=== PATIENT | female | born 1990 | race Caucasian/White ===

== ENCOUNTER → 2021-10-21 | Outpatient (CLI) | payer OTHER, SELFPAY ==
[2021-10-21 17:46] LABS: Protein, Urine (Random) 15.4 mg/dL (<11.9); Protein:Creat Ratio 125 mg/g CRE (0-200)
== END | disposition home or self-care (01) ==
LOC: LABSPEC 16:43
PROVIDERS: Visit Provider Student in an Organized Health Care Education/Training Program
DX: Z34.81 Encounter for supervision of other normal pregnancy, first trimester (principal)
CPT/HCPCS: 82570; 84156; 87086; 87088

== ENCOUNTER 2022-01-27 09:13 | Outpatient (CLI) | payer OTHER, SELFPAY ==
[2022-01-27 10:17] LABS: Glucose GTT-Gestation. Fasting 90 mg/dL (<105)
[2022-01-27 11:05] LABS: Glucose GTT-Gestational 1 Hr 188 mg/dL (<190)
[2022-01-27 12:37] LABS: Glucose GTT-Gestational 2 Hr 194 mg/dL (<165)
[2022-01-27 14:13] LABS: Glucose GTT-Gestational 3 Hr 79 L (<145)
== END 2022-01-27 23:59 | disposition home or self-care (01) ==
LOC: WOBLAB 09:14
PROVIDERS: Visit Provider Obstetrics & Gynecology
DX: O24.912 Unspecified diabetes mellitus in pregnancy, second trimester (principal); Z3A.00 Weeks of gestation of pregnancy not specified
CPT/HCPCS: 36415; 82951; 82952

== ENCOUNTER 2022-04-17 19:30 | Inpatient (IN) | payer OTHER, SELFPAY ==
[2022-04-17] VITALS (56 sets, daily range): BP systolic 134–192; BP diastolic 72–101; PULSE 92–123; RESP 14–16; TEMP 36.6–36.9; O2SAT 96–100; BMI 45.4
[2022-04-17 19:41] LABS: ROM Internal Control Test YES-OK TO RESULT pt. (Internal QC); ROM Patient Test Negative (Negative)
[2022-04-17] MEDS: Lactated Ringers 1,000 ML 50 ML IV (19:45)
[2022-04-17] MEDS: Magnesium Sulfate 4gm/100mL 4 GM/100 ML IV.SOLN. IV (19:55)
[2022-04-17 20:00] LABS: Bedside Glucose 85 mg/dL (74-106)
[2022-04-17 20:19] LABS: ALB/GLOB Ratio 0.6 RATIO (0.9-2.4); AST(SGOT) 19 U/L (15-37); Alanine Aminotransfer ALT/SGPT 39 U/L (13-56); Albumin, Serum 2.4 g/dL (3.2-5.0); Alkaline Phosphatase 115 U/L (45-117); Anion Gap 7 (5-15); BUN 10 mg/dL (7-18); BUN/Creat Ratio 18.8 RATIO (10-20); Calcium,Total 9.5 mg/dL (8.5-10.1); Chloride 107 mmol/L (98-107); Creatinine, Serum 0.53 mg/dL (0.55-1.02); EST Glomerular Filtration Rate 142 mL/min (>60); Est Glom Filt Rate - Afr Amer 172 mL/min (>60); Estimated Creatinine Clearance 138.39 ml/min; Glucose 90 mg/dL (74-106); Potassium 3.8 mmol/L (3.5-5.1); Protein, Total 6.4 g/dL (6.4-8.2); Sodium Level 136 mmol/L (136-145)
--- NOTE | 2022-04-17 20:32 | PCM.HP.BLA ---
History and Physical Date of Admission: 04/17/22 HPI: 32-year-old G2, P1 at 36/6 weeks, REED 05/09/2022 by LMP, admitted for superimposed preeclampsia with severe features. Patient reports that she was feeling unwell today, family members had her come into the hospital. Did not take evening dose of labetalol. Denies headache, vision changes, chest pain or shortness of breath, nausea or vomiting, right upper quadrant pain. Reports movement. Denies contractions. Reports some leaking of fluid. complicated by: Class III obesity, chronic hypertension on medication, GDM A2, history of preeclampsia, polyhydramnios [employer] history G1: 37-week 2010, preeclampsia G2: Current Medical history: 1. Chronic hypertension 2. Obesity, class III Allergies: 1. Aspirin 2. Macrobid Medications: 1. Labetalol 100 mg twice daily 2. vitamin 3. Levemir 15 units qHS Social history: Denies tobacco, alcohol, drug use Family history: Noncontributory Review of systems: Negative otherwise stated above Physical exam: Vitals: BP 140/90, pulse 113, pulse ox 100% on room air, temp 97.9 ?F General: No acute distress HEENT: Normocephalic/atraumatic, PERRLA Cardiac: Regular rate and rhythm no murmurs rubs or gallops Respiratory: Clear to auscultation bilaterally Abdomen: Soft, nontender, gravid, no right upper quadrant pain Extremities: Minimal edema Neurologic: Cranial nerves II through XII grossly intact, patellar reflexes 2/4 bilaterally Musculoskeletal: Full strength 5 out of 5 throughout all extremities Cervical exam: 1-2 per RN heart rate:155/mod marizol/+accel/no decel [place]: q3-4 panel: A positive Rubella immune RPR nonreactive HCV negative H IV negative Hepatitis B neg Gonorrhea/chlamydia negative GBS negative on 04/08 Labs today: CBC pending, creatinine 0.35, AST/ALT 19/39 Negative ROM Assessment/plan:32-year-old G2, P1 at 36/6 weeks, REED 05/09/2022 by LMP, admitted for superimposed preeclampsia with severe features. complicated by: Class III obesity, chronic hypertension on medication, GDM A2, history of preeclampsia, polyhydramnios. ?Upon admission to triage patient had blood pressures elevated in the severe range with 180-190 systolic 15 minutes apart. Severe range blood pressure resolved prior to being given 20 mg IV labetalol. With blood pressure was taken simultaneously at time of starting magnesium sulfate, which as a vasodilator could contribute to decrease in blood pressure. Due to severity of blood pressure in the setting of chronic hypertension on labetalol at 36/6 weeks, decision to admit patient for induction of labor was made. Based on ACOG guidelines gestational age for induction of labor for patients with chronic hypertension on medication that is well controlled starts at 37/0 weeks, difficult to control at 36/0. This along with severe range blood pressures, supports admission for induction of labor at this time. Discussed diagnosis and plan of care with patient who was amenable to plan. ?Continue magnesium sulfate 6 g bolus followed by 2 g/h. We will get magnesium levels every 6 hours. ? GBS negative on 04/08. ?Induction of labor with Cytotec. ? GDM A2. Patient on Levemir 15 nightly at home. Diabetic protocol while in labor.
[2022-04-17] MEDS: Magnesium Sulfate 20 GM/500 ML BAG IV (20:45)
[2022-04-17] MEDS: Labetalol 200 MG Tablet PO (20:53)
[2022-04-17 21:15] LABS: Absolute Lymphocyte Count 2.57 X10^3/uL (0.83-4.51); Absolute Neutrophil Count 8.3 X10^3/uL (2.0-7.7); Basophil# 0.01 X10^3/uL; Basophil% 0.1 % (0-1); Eosinophil# 0.03 X10^3/uL; Eosinophils% 0.3 % (0-5); Hematocrit 37.9 % (37-47); Hemoglobin 12.4 g/dL (12.0-15.0); Lymphocyte # 2.57 X10^3/ul (0.83-4.51); Lymphocyte % 21.9 % (19-41); Mean Corp Hgb Conc 32.7 g/dL (32-36); Mean Corpuscular Hgb 28.2 pg (27.0-32.0); Mean Corpuscular Volume 86.1 fL (81-99); Mean Platelet Vol. 9.3 fl (6.2-12.0); Monocyte# 0.76 X10^3/uL; Monocyte% 6.5 % (0-10); NRBC Flagged by Analyzer 0 % (0-5); Neutrophil % 70.7 % (47-70); Platelet Count 310 K/mm3 (150-450); RBC Distribution Width CV 13.2 % (11.6-14.6); RBC Distribution Width SD 41.4 fl (35.1-43.9); White Blood Count 11.7 K/mm3 (4.4-11.0)
[2022-04-17] MEDS: miSOPROStol 25 MCG TABLET VAGINAL (21:25)
[2022-04-17 23:56] LABS: Bedside Glucose 81 mg/dL (74-106)
[2022-04-18] VITALS (107 sets, daily range): BP systolic 102–175; BP diastolic 52–87; PULSE 75–110; RESP 14–16; TEMP 36.1–37.2; O2SAT 87–100
[2022-04-18] MEDS: Mag Hydrox/Al Hydrox/Simeth 30 ML UDC PO ×2 (01:01→20:12)
[2022-04-18] MEDS: miSOPROStol 25 MCG TABLET VAGINAL ×3 (01:11→08:56)
[2022-04-18 01:20] LABS: Bedside Glucose 100 mg/dL (74-106)
[2022-04-18] MEDS: Acetaminophen 500 MG Tablet PO ×3 (02:26→20:12)
[2022-04-18 05:31] LABS: Bedside Glucose 103 mg/dL (74-106)
[2022-04-18] MEDS: Magnesium Sulfate 20 GM/500 ML BAG IV ×3 (06:01→23:20)
--- NOTE | 2022-04-18 08:09 | PCM.PN.OB ---
Subjective Subjective Doing well with Cytotec. Pain controlled. No headache or vision changes. Objective Data Objective Data Vital Signs: Vital Signs Temp Pulse Resp BP Pulse Ox 98.2 F 102 H 16 153/77 H 97 04/18/22 08:01 04/18/22 08:02 04/18/22 07:59 04/18/22 07:59 04/18/22 08:02 Oxygen Delivery Method Room Air Weight: 123.9 kg Body Mass Index (BMI) 45.4 Intake & Output: Intake and Output for Last 24 Hours 04/16/22 04/17/22 04/18/22 23:59 23:59 23:59 Intake Total 466.67 / 466.67 1415.41 / 1415.41 Output Total 300 / 300 1775 / 1775 Balance 166.67 / 166.67 -359.59 / -359.59 Lab / Micro Data Result Diagrams: 04/17/22 21:05 04/17/22 19:40 Labs: Laboratory Results - last 24 hr 04/17/22 18:55: Vag Amniotic Fld Detect Negative 04/17/22 19:40: WBC Cancelled, Corrected WBC Cancelled, RBC Cancelled, Hgb Cancelled, Hct Cancelled, MCV Cancelled, MCH Cancelled, MCHC Cancelled, RDW Std Deviation Cancelled, RDW Coeff of Hua Cancelled, Plt Count Cancelled, MPV Cancelled, Immature Gran % (Auto) Cancelled, Neut % (Auto) Cancelled, Lymph % (Auto) Cancelled, [place] % (Auto) Cancelled, Eos % (Auto) Cancelled, Baso % (Auto) Cancelled, Absolute Neuts (auto) Cancelled, Absolute Lymphs (auto) Cancelled, Total Counted Cancelled, Neutrophils % (Manual) Cancelled, Band Neutrophils % Cancelled, Lymphocytes % (Manual) Cancelled, Monocytes % (Manual) Cancelled, Eosinophils % (Manual) Cancelled, Basophils % (Manual) Cancelled, Metamyelocytes % Cancelled, Myelocytes % Cancelled, Promyelocytes % Cancelled, Blast Cells % Cancelled, Plasma Cell % (Manual) Cancelled, Other Cells % Cancelled, Nucleated RBC % Cancelled, Nucleated RBCs/100 WBC Cancelled, Differential Comment Cancelled, Diff Path Review Cancelled, Hypersegmented Neuts Cancelled, Atypical Lymphocytes Cancelled, Reactive Lymphocytes Cancelled, Smudge Cells Cancelled, Toxic Granulation Cancelled, Toxic Vacuolation Cancelled, Dohle Bodies Cancelled, Michael Rods Cancelled, Platelet Estimate Cancelled, Plt Morphology Comment Cancelled, RBC Morphology Cancelled, Polychromasia Cancelled, Hypochromasia Cancelled, Poikilocytosis Cancelled, Basophilic Stippling Cancelled, Anisocytosis Cancelled, Microcytosis Cancelled, Macrocytosis Cancelled, Spherocytes Cancelled, Sickle Cells Cancelled, Target Cells Cancelled, Tear Drop Cells Cancelled, Ovalocytes Cancelled, Stomatocytes Cancelled, [place] Bodies Cancelled, [place] Cells Cancelled, Bite Cells Cancelled, Crenated Cell Cancelled, Acanthocytes (Spur) Cancelled, Rouleaux Cancelled, Schistocytes Cancelled 04/17/22 19:40: Blood Type A POSITIVE, Antibody Screen NEGATIVE 04/17/22 19:40: Sodium 136, Potassium 3.8, Chloride 107, Carbon Dioxide 22.0, Anion Gap 7, BUN 10, Creatinine 0.53 L, Estim Creat Clear Calc 138.39, Est GFR (MDRD) Af Amer 172, Est GFR (MDRD) Non-Af 142, BUN/Creatinine Ratio 18.8, Glucose 90, Calcium 9.5, Total Bilirubin 0.20, AST 19, ALT 39, Alkaline Phosphatase 115, Total Protein 6.4, Albumin 2.4 L, Globulin 4.0, Albumin/Globulin Ratio 0.6 L 04/17/22 19:54: POC Glucose 85 04/17/22 20:56: POC Glucose 81 04/17/22 21:05: WBC 11.7 H, RBC 4.40, Hgb 12.4, Hct 37.9, MCV 86.1, MCH 28.2, MCHC 32.7, RDW Std Deviation 41.4, RDW Coeff of Hua 13.2, Plt Count 310, MPV 9.3, Immature Gran % (Auto) 0.500, Neut % (Auto) 70.7 H, Lymph % (Auto) 21.9, [place] % (Auto) 6.5, Eos % (Auto) 0.3, Baso % (Auto) 0.1, Absolute Neuts (auto) 8.3 H, Absolute Lymphs (auto) 2.57, Nucleated RBC % 0 04/18/22 01:06: POC Glucose 100 04/18/22 05:16: POC Glucose 103 Micro: Microbiology 04/17/22 19:40 Nasal Secretion SARS-CoV-2 Antigen (Rapid) - Final Physical Exam Const alert, oriented x3 and no apparent distress HEENT normocephalic Head and Scalp: atraumatic Resp normal respiratory effort Cardio regular rate GI soft to palpation and non-tender Inspection: gravid NST FHR Rate Baby A Baseline: 130 Variability:: Moderate Accelerations:: 15 x 15 Decelerations:: None FHR Category:: Category I Assessment & Plan (1) Severe pre-eclampsia: PLAN: 37/0 weeks. Continued induction of labor for superimposed preeclampsia based on severe range blood pressures, uncontrolled chronic hypertension. -Patient has received 2 doses of Cytotec. She is 2 cm dilated per RN at last check. Next dose of Cytotec due at approximately 9 AM. To be given. -Continue magnesium sulfate. ?Continue labetalol 200 mg every 12 hours. -Blood glucose well controlled (2) Gestational diabetes: (3) Polyhydramnios: COMMENT: per dr diggs (4) Chronic hypertension:
[2022-04-18 09:20] LABS: Bedside Glucose 144 mg/dL (74-106)
[2022-04-18] MEDS: Labetalol 200 MG Tablet PO (10:14)
[2022-04-18 11:26] LABS: Bedside Glucose 129 mg/dL (74-106)
[2022-04-18] MEDS: Oxytocin 30 units/NS 500 ml 30 UNITS/500 ML IV.SOLN IV ×2 (13:31→14:02)
[2022-04-18] MEDS: Lactated Ringers 500 ML 999 ML IV (14:03)
[2022-04-18] MEDS: fentaNYL-bupivacaine (epidural) 100 ML BAG EPIDURAL ×2 (14:45→23:21)
[2022-04-18 16:06] LABS: Bedside Glucose 94 mg/dL (74-106)
--- NOTE | 2022-04-18 19:50 | NURSING ---
pt has epidural. difficult to assess patellar reflexes accurately
[2022-04-18 20:31] LABS: Bedside Glucose 86 mg/dL (74-106)
[2022-04-18] MEDS: Ondansetron 4 MG/2 ML Vial IV (22:35)
[2022-04-18] MEDS: 0.9% Saline Lock 10 ML Syringe IV (22:35)
[2022-04-18] MEDS: Lactated Ringers 1,000 ML 25 ML IV (23:20)
[2022-04-19] VITALS (56 sets, daily range): BP systolic 97–156; BP diastolic 50–85; PULSE 77–100; RESP 14–20; TEMP 36.4–37.4; O2SAT 92–100
[2022-04-19 00:36] LABS: Bedside Glucose 97 mg/dL (74-106)
[2022-04-19] MEDS: Lactated Ringers 500 ML 999 ML IV (02:17)
[2022-04-19] MEDS: Amnioinfusion- 0.9% NS 1,000 ML IV.SOLN. INTRA-UTER (02:29)
[2022-04-19 02:41] LABS: Bedside Glucose 99 mg/dL (74-106)
[2022-04-19 03:41] LABS: Bedside Glucose 91 mg/dL (74-106)
[2022-04-19] MEDS: Acetaminophen 500 MG Tablet PO (03:50)
[2022-04-19] MEDS: fentaNYL-bupivacaine (epidural) 100 ML BAG EPIDURAL ×2 (03:51→08:34)
[2022-04-19 05:06] LABS: Bedside Glucose 105 mg/dL (74-106)
[2022-04-19] MEDS: Amnioinfusion- 0.9% NS 1,000 ML IV.SOLN. 1000 ML INTRA-UTER (06:25)
[2022-04-19 06:35] LABS: Bedside Glucose 93 mg/dL (74-106)
--- NOTE | 2022-04-19 08:37 | PCM.PN.OB ---
Subjective Subjective No complaints. Remains asymptomatic denies headache, visual changes, chest pain, shortness of breath, nausea vomit, or upper quadrant pain. Objective Data Objective Data Vital Signs: Vital Signs Temp Pulse Resp BP Pulse Ox 98.1 F 89 16 122/68 H 99 04/19/22 07:40 04/19/22 07:38 04/19/22 06:59 04/19/22 07:38 04/19/22 07:37 Oxygen Delivery Method Room Air Weight: 273 lb 2.444 oz Body Mass Index (BMI) 45.4 Intake & Output: Intake and Output for Last 24 Hours 04/17/22 04/18/22 04/19/22 23:59 23:59 23:59 Intake Total 466.67 / 466.67 4297.86 / 4297.86 993.02 / 993.02 Output Total 300 / 300 3250 / 3250 425 / 425 Balance 166.67 / 166.67 1047.86 / 1047.86 568.02 / 568.02 Lab / Micro Data Result Diagrams: 04/17/22 21:05 04/17/22 19:40 Labs: Laboratory Results - last 24 hr 04/18/22 09:00: POC Glucose 144 H 04/18/22 11:07: POC Glucose 129 H 04/18/22 15:48: POC Glucose 94 04/18/22 20:18: POC Glucose 86 04/19/22 00:26: POC Glucose 97 04/19/22 02:30: POC Glucose 99 04/19/22 03:35: POC Glucose 91 04/19/22 04:50: POC Glucose 105 04/19/22 05:55: POC Glucose 93 Micro: Microbiology 04/17/22 19:40 Nasal Secretion SARS-CoV-2 Antigen (Rapid) - Final Physical Exam Const alert, oriented x3, no apparent distress, average body habitus, healthy appearing and well nourished HEENT normocephalic and moist oral mucous membranes Head and Scalp: atraumatic Face and Sinus: normal facial exam Eyes PERRL Neck full ROM Resp normal respiratory effort, no retractions and no use of accessory muscles Extremity normal to inspection, full ROM and no clubbing, cyanosis or edema Psych mental status grossly normal, affect normal, speech normal and activity/motor behavior normal Assessment & Plan (1) : PLAN: Patient seen and examined. Remains asymptomatic. We will continue to monitor blood pressures. For magnesium level now. We will continue current management
[2022-04-19] MEDS: Magnesium Sulfate 20 GM/500 ML BAG IV ×2 (08:41→15:48)
[2022-04-19 08:55] LABS: Bedside Glucose 99 mg/dL (74-106)
[2022-04-19 08:55] LABS: Bedside Glucose 103 mg/dL (74-106)
[2022-04-19 09:35] LABS: Magnesium 6.2 mg/dL (1.6-2.6)
[2022-04-19] MEDS: Labetalol 200 MG Tablet PO ×2 (10:20→22:19)
[2022-04-19 10:21] LABS: Bedside Glucose 89 mg/dL (74-106)
[2022-04-19] MEDS: Ondansetron 4 MG/2 ML Vial IV (10:27)
[2022-04-19 12:00] LABS: Bedside Glucose 97 mg/dL (74-106)
[2022-04-19] MEDS: miSOPROStol 200 MCG Tablet 1000 MCG RC (13:48)
[2022-04-19] MEDS: Oxytocin 30 units/NS 500 ml 30 UNITS/500 ML IV.SOLN 334 UNITS IV (13:48)
--- NOTE | 2022-04-19 14:03 | EX.PCM.OBRPT ---
Vaginal Delivery Findings Description of Procedure: Called by nursing for delivery. Arrived to baby delivered in warmer, placenta still intact. Placenta delivered via cord traction and fundal massage. No lacerations noted. Expedited second stage, Cytotec and 1000 mcg NV placed. EBL 400 cc Apgars 8/9
[2022-04-19 14:31] LABS: Bedside Glucose 108 mg/dL (74-106)
[2022-04-19 14:31] LABS: Bedside Glucose 92 mg/dL (74-106)
[2022-04-19] MEDS: Acetaminophen 500 MG Tablet 1000 MG PO (14:57)
[2022-04-19] MEDS: Ibuprofen 600 MG Tablet PO ×2 (17:46→23:58)
--- NOTE | 2022-04-19 17:53 | NURSING ---
this nurse spoke to dr.holmes hurst and she stated we will leave the pt on magnesium for 24 hours but we do not need to do mag levels as long as the pt has good reflexes.
[2022-04-20] VITALS (40 sets, daily range): BP systolic 93–189; BP diastolic 50–86; PULSE 67–89; RESP 16–20; TEMP 35.6–37; O2SAT 93–99
[2022-04-20] MEDS: Magnesium Sulfate 20 GM/500 ML BAG IV (01:11)
[2022-04-20 05:26] LABS: Bedside Glucose 109 mg/dL (74-106)
[2022-04-20] MEDS: Ibuprofen 600 MG Tablet PO ×2 (07:23→21:59)
[2022-04-20] MEDS: 0.9% Saline Lock 10 ML Syringe IV (09:21)
--- NOTE | 2022-04-20 09:22 | PCM.PN.OB ---
Subjective Subjective Patient without complaints still on magnesium sulfate for PIH . Denies any PIH symptoms and blood pressures for the most part are normal. Objective Data Objective Data Vital Signs: Vital Signs Temp Pulse Resp BP Pulse Ox 97.2 F L 74 18 115/62 96 04/20/22 08:13 04/20/22 08:14 04/20/22 08:13 04/20/22 08:14 04/20/22 08:13 Oxygen Delivery Method Room Air Weight: 273 lb 2.444 oz Body Mass Index (BMI) 45.4 Intake & Output: Intake and Output for Last 24 Hours 04/18/22 04/19/22 04/20/22 23:59 23:59 23:59 Intake Total 4297.86 / 4297.86 3557.98 / 3557.98 1069.17 / 1069.17 Output Total 3250 / 3250 1725 / 1725 1500 / 1500 Balance 1047.86 / 1047.86 1832.98 / 1832.98 -430.83 / -430.83 Lab / Micro Data Result Diagrams: 04/17/22 21:05 04/17/22 19:40 Labs: Laboratory Results - last 24 hr 04/19/22 09:00: Magnesium 6.2 H* 04/19/22 09:48: POC Glucose 89 04/19/22 11:29: POC Glucose 97 04/19/22 12:43: POC Glucose 92 04/19/22 13:36: POC Glucose 108 H 04/20/22 05:18: POC Glucose 109 H Micro: Microbiology 04/17/22 19:40 Nasal Secretion SARS-CoV-2 Antigen (Rapid) - Final Assessment & Plan (1) Severe pre-eclampsia: PLAN: Doing well day #1 status post routine spontaneous vaginal delivery. Will discontinue magnesium sulfate and continue monitoring. Possible discharge tomorrow. Continuing p.o. labetalol 200 mg twice daily.
[2022-04-20] MEDS: Labetalol 200 MG Tablet PO ×2 (10:20→21:59)
[2022-04-20] MEDS: Senna/Docusate Sodium 1 Tablet PO (10:20)
--- NOTE | 2022-04-20 12:18 | NURSING ---
Report give to Stiven DAN, taking over pt care at this time.
[2022-04-21] VITALS (8 sets, daily range): BP systolic 98–131; BP diastolic 46–65; PULSE 64–75; RESP 18; TEMP 36.8–36.9; O2SAT 95–97
--- NOTE | 2022-04-21 07:04 | PCM.PN.OB ---
Subjective Subjective Patient without complaints. Breast-feeding going well. Denies any PIH symptoms. Blood pressures normal on labetalol 200 mg twice daily. Objective Data Objective Data Vital Signs: Vital Signs Temp Pulse Resp BP Pulse Ox 98.4 F 69 18 114/65 95 04/21/22 04:34 04/21/22 04:37 04/21/22 04:35 04/21/22 04:37 04/21/22 04:35 Oxygen Delivery Method Room Air Weight: 273 lb 2.444 oz Body Mass Index (BMI) 45.4 Intake & Output: Intake and Output for Last 24 Hours 04/19/22 04/20/22 04/21/22 23:59 23:59 23:59 Intake Total 3557.98 / 3557.98 1568.34 / 1568.34 Output Total 1725 / 1725 2200 / 2200 Balance 1832.98 / 1832.98 -631.66 / -631.66 Lab / Micro Data Result Diagrams: 04/17/22 21:05 04/17/22 19:40 Micro: Microbiology 04/17/22 19:40 Nasal Secretion SARS-CoV-2 Antigen (Rapid) - Final Assessment & Plan (1) : PLAN: Doing well day #2 status post routine spontaneous vaginal delivery. Will discharge to home on labetalol 200 mg twice daily as she was on prior to delivery. Routine home-going instructions given otherwise.
--- NOTE | 2022-04-21 07:09 | PCM.DC ---
Discharge Instructions Diet Discharge Diet: No restrictions Activity Discharge Activity: May Drive (In 1 to 2 days if not taking narcotic pain medication), May Shower and May Take a Tub Bath May resume sexual activity in: 4-6 weeks Additional Activity Instructions:: Nothing in the vagina for 4-6 weeks. You may return to work/school in 6 weeks. Dressing / Incision Call your doctor if you observe: Fever of 101 or Higher, Inability to urinate, Inability to have a bowel movement and Using more than 1 pad per hour Follow Up Care Please Follow Up With: Kendell Osborne MD When: Call [phone] to make an appointment with your doctor in 6 weeks. Test Results: Test results from this visit will be discussed in further detail at your follow-up appointment, if applicable. Discharge Plan Admission Admit Date/Time: 04/17/22 19:30 Primary Reason for Your Visit: Vaginal Delivery Attending Provider: Kendell Osborne Primary Care Provider: Care Physician,Hermelinda Primary Discharge Orders/Prescriptions Prescriptions: Continued labetalol 100 mg Tablet 100 mg PO BID RF: 0 pkquxban-gam-[id number]-FA 1 mg Tablet 1 tab PO DAILY RF: 0 Discontinued Levemir Flexpen 100 unit/mL (3 mL) Insulin Pen 15 unit SUBCUT QHS RF: 0 Referrals / Follow Up: Care Physician,No Primary [Primary Care Provider] - Disposition Disposition (needs filled in before D/C Order can be placed): Home, Self Care
--- NOTE | 2022-04-21 07:12 | DS.PCM_ITS ---
Providers Date of Admission: 04/17/22 Primary Care Physician: Hermelinda Primary Care Phys Reason For Visit: VAGINAL DELIVERY Diagnosis Discharge Diagnosis (1) : Status: Acute Code(s): Z34.90 - Encounter for supervision of normal , unspecified, unspecified trimester Medications at Discharge Home Medications labetalol 100 mg PO BID 04/17/22 [id number]-[id number] 1 tab PO DAILY 04/17/22 Hospital Course Summary of Care Provided Hospital Course: Patient was admitted for induction for -induced hype rtension. Cytotec induction was started. She progressed and delivered without complications on magnesium sulfate. Magnesium sulfate was discontinued for approximately 18 hours postdelivery and 1. Blood pressures remain normal on labetalol 200 mg twice daily. She denies any PIH symptoms. She was discharged on this medication and dose. Weight / BMI Weight Weight: 273 lb 2.444 oz Body Mass Index (BMI) 45.4 ABG / Lab / Microbiology Data Result Diagrams: 04/17/22 21:05 04/17/22 19:40 Microbiology: Microbiology 04/17/22 19:40 Nasal Secretion SARS-CoV-2 Antigen (Rapid) - Final D/C Instructions Discharge Diet: No restrictions May resume sexual activity in: 4-6 weeks Additional Activity Instructions: Nothing in the vagina for 4-6 weeks. You may return to work/school in 6 weeks. Call your doctor if you observe: Fever of 101 or Higher, Inability to urinate, Inability to have a bowel movement and Using more than 1 pad per hour Please Follow Up With: Kendell Osborne MD When: Call [phone] to make an appointment with your doctor in 6 weeks. Meaningful Use Info Meaningful Use Diagnoses (Choose all that apply): None applicable Discharge Plan Admission Admit Date/Time: 04/17/22 19:30 Primary Reason for Your Visit: Vaginal Delivery Attending Provider: Kendell Osborne Primary Care Provider: Care Physician,Hermelinda Primary Discharge Orders/Prescriptions Prescriptions: Continued labetalol 100 mg Tablet 100 mg PO BID RF: 0 ryalflkq-pjt-Eq-FA 1 mg Tablet 1 tab PO DAILY RF: 0 Discontinued Levemir Flexpen 100 unit/mL (3 mL) Insulin Pen 15 unit SUBCUT QHS RF: 0 Referrals / Follow Up: Care Physician,No Primary [Primary Care Provider] - Disposition Disposition (needs filled in before D/C Order can be placed): Home, Self Care
== END 2022-04-21 08:35 | disposition home or self-care (01) | DRG 807 ==
LOC: WPOUT 19:47 → WP 19:47
PROVIDERS: Admitting Provider Obstetrics & Gynecology; Referring Provider Student in an Organized Health Care Education/Training Program; Visit Provider Obstetrics & Gynecology
DX: O14.14 Severe pre-eclampsia complicating childbirth (principal); Z37.0 Single live birth; E66.9 Obesity, unspecified; O62.3 Precipitate labor; O99.214 Obesity complicating childbirth; O24.424 Gestational diabetes mellitus in childbirth, insulin controlled; O40.3XX0 Polyhydramnios, third trimester, not applicable or unspecified; Z3A.36 36 weeks gestation of pregnancy
CPT/HCPCS: 59025; 59050; 80053; 82962; 83735; 84112; 85025; 86850; 86900; 86901; 87426; 99218; 99406; J7030; J7120; A4216; G0378; J2405